=== PATIENT | male | born 1995 | race Caucasian/White ===

== ENCOUNTER 2021-03-01 14:33 | Emergency (ER) | payer OTHER ==
[~2021-03-01] VITALS: Ht 185.4 cm; Wt 103.2 kg
[2021-03-01 16:24] LABS: BASO # 0.1 10^3/uL (0.0-0.2); BASO % 0.6 % (0.0-1.0); EOS # 0.1 10^3/uL (0.0-0.5); EOS % 0.7 % (0.0-3.0); HEMATOCRIT 46.3 % (42.0-52.0); HEMOGLOBIN 16.4 g/dl (13.5-17.5); LYMPH # 2.4 10^3/uL (1.5-5.0); LYMPH % 26.7 % (24.0-44.0); MEAN CORPUSCULAR HEMOGLOBIN 32.3 pg (27.0-33.0); MEAN CORPUSCULAR HGB CONC 35.4 g/dl (32.0-36.5); MEAN CORPUSCULAR VOLUME 91.3 fl (80.0-96.0); MONO # 0.7 10^3/uL (0.0-0.8); MONO % 7.5 % (2.0-8.0); NEUTROPHILS # 5.8 10^3/uL (1.5-8.5); NEUTROPHILS % 64.3 % (36.0-66.0); PLATELET COUNT, AUTOMATED 264 10^3/uL (150-450); RED BLOOD COUNT 5.07 10^6/uL (4.30-6.10)
--- NOTE | 2021-03-01 16:37 | REP ---
INDICATION: CHEST PAIN. COMPARISON: None. TECHNIQUE: Single portable AP view of the chest was performed. FINDINGS: There is no acute infiltrate or pulmonary edema. Lungs are clear. The heart is not significantly enlarged. The mediastinal silhouette is unremarkable. The visualized osseous structures are intact. IMPRESSION: No acute pulmonary disease. <Electronically signed by Johnny Hernandez > 03/01/21 [id number]
[2021-03-01 16:51] LABS: BLOOD UREA NITROGEN 23 MG/DL (7-18); CALCIUM LEVEL 9.1 MG/DL (8.5-10.1); CARBON DIOXIDE LEVEL 27 MEQ/L (21-32); CHLORIDE LEVEL 105 MEQ/L (98-107); GLOMERULAR FILTRATION RATE > 60.0 (>60); GLUCOSE, FASTING 86 MG/DL (70-100); SODIUM LEVEL 137 MEQ/L (136-145)
[2021-03-01 17:30] LABS: CK-MB VALUE MASS 2.4 NG/ML (<3.6); CPK CREATINE PHOSPHOKINASE 349 U/L (39-308); MB/CK RELATIVE INDEX 0.69 (< OR =4); TROPONIN I < 0.02 NG/ML (< 0.10)
[2021-03-01 18:33] LABS: C REACTIVE PROTEIN QUANTITATIV < 0.30 MG/DL (0.00-0.30)
[2021-03-01 19:02] LABS: ERYTHROCYTE SEDIMENTATION RATE 1 mm/hr (0-15)
[2021-03-01 19:11] LABS: CK-MB VALUE MASS 2.3 NG/ML (<3.6); CPK CREATINE PHOSPHOKINASE 379 U/L (39-308); MB/CK RELATIVE INDEX 0.61 (< OR =4); TROPONIN I < 0.02 NG/ML (< 0.10)
[2021-03-01] MEDS ORDERED: NS 1,000 ML IV ONE (19:15)
[2021-03-01 20:55] VITALS: BP 116/67
--- NOTE | 2021-03-01 21:48 | ECGEPIP ---
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
--- NOTE | 2021-03-01 21:50 | ECGEPIP ---
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
== END 2021-03-01 20:57 | disposition home or self-care (01) ==
LOC: M ED 14:33
DX: R07.9 Chest pain, unspecified (principal); I45.19 Other right bundle-branch block